=== PATIENT | female | born 1985 | race African-American/Black ===

== ENCOUNTER 2017-05-02 15:08 | Emergency (ER) | payer OTHER ==
[~2017-05-02] VITALS: Ht 167.6 cm; Wt 74.8 kg
[~2017-05-02 15:08] MED LIST: ANUSOL-HC CREAM30 G1 EXT; DIFLUCAN PO; DOXYCYCLINE PO; NO MEDICATIONS
[2017-05-02] MEDS ORDERED: NO MEDICATIONS (15:27)
[2017-05-02 19:05] LABS: ALT (SGPT) 11 U/L (10-40); AST (SGOT) 17 U/L (10-42)
[2017-05-05 07:52] LABS: HA AB IGM (HEPPAN) Nonreactive (()); HB CORE AB IGM (HEPPAN) Nonreactive (Nonreactive); HB S AG (HEPPAN) Nonreactive (Nonreactive); HEP C AB (HEPPAN) Nonreactive (Nonreactive); HEP C AB SIGNAL TO CUTOFF 0.02 ratio (<1.00)
== END 2017-05-02 19:48 | disposition home or self-care (01) ==
LOC: SED 15:08
PROVIDERS: Nurse Practitioner
DX: Z20.5 Contact with and (suspected) exposure to viral hepatitis (principal); F17.210 Nicotine dependence, cigarettes, uncomplicated; Z86.73 Personal history of transient ischemic attack (TIA), and cerebral infarction without residual deficits
CPT/HCPCS: 80074; 84450; 84460; 99283